=== PATIENT | male | born 1955 | race Caucasian/White ===

== ENCOUNTER → 2016-07-23 | Outpatient (CLI) | payer OTHER | LOC: GMAL 10:53 | PROVIDERS: ATTEND Family Medicine | DX: D51.3 Other dietary vitamin B12 deficiency anemia (principal); E29.8 Other testicular dysfunction; E55.9 Vitamin D deficiency, unspecified; Z79.899 Other long term (current) drug therapy ==

== ENCOUNTER → 2016-10-14 | Outpatient (CLI) | payer OTHER | LOC: SL 21:30 | PROVIDERS: ATTEND Psychiatry & Neurology Psychiatry | DX: G47.33 Obstructive sleep apnea (adult) (pediatric) (principal) ==

== ENCOUNTER 2016-12-20 05:45 | Day surgery (SDC) | payer OTHER ==
--- NOTE | 2016-12-16 08:58 | SSS ---
CHIEF COMPLAINT: Need for screening colonoscopy. HISTORY OF PRESENT ILLNESS: Mr. Beltran is a 61-year-old male who presented to my office for routine followup. He had a colonoscopy in 2011 by another physician. This physician recommended that he have a repeat colonoscopy in approximately two years because his bowel prep was poor and this made visualization difficult. In addition, he had a slightly tortuous colon with redundancy. Risks and benefits were discussed and he is agreeable to proceed. He has no recent history of changes in his bowel habits, though he does suffer from constipation somewhat chronically. He has had no blood in his stools. PAST MEDICAL HISTORY: 1. Diabetes mellitus diagnosed in 1988. He has been on insulin since 2005. 2. Hypothyroidism. 3. Seasonal allergies for which he is on immunotherapy. 4. Chronic depression. 5. Hyperlipidemia. 6. Hypertension. PAST SURGICAL HISTORY: 1. Vasectomy in 1988. 2. Colonoscopy as described above by Dr. Tristan on 12/24/11. 3. EGD that showed mild gastritis with no H. pylori or sprue. He did have a hiatal hernia and a widely patent Schatzki's ring, also by Dr. Tristan on 12/24/11. 4. Normal sinus rhythm in 11/25 that showed ejection fraction 60%, fixed hypoperfusion defect of the anterior left ventricle, suggestive of a prior myocardial infarction. 5. Echocardiogram on 11/05/14 that showed mild left ventricular hypertrophy, ejection fraction of 61%, diastolic dysfunction, diffuse thickening or sclerosis of the aortic valve cusps without reduced excursion. CURRENT MEDICATIONS: 1. Bystolic. 2. Crestor. 3. Janumet. 4. Lantus. 5. Levothyroxine. 6. Singulair. 7. Fluticasone. 8. Lamotrigine. 9. Methylphenidate. 10. Celexa. ALLERGIES: BACTRIM, WHICH MADE HIM FEEL LIKE HE COULD NO BREATHE, FARXIGA WHICH GIVES HIM A DRY MOUTH, AND PENICILLIN WHICH CAUSES RASH. FAMILY HISTORY: Father at 73 from pancreatic cancer. Mother at 78 from pneumonia and dementia. He has one adopted son. He has three siblings. SOCIAL HISTORY: He is a [place]. 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 He is . He has never smoked and he does not consume alcohol. PHYSICAL EXAMINATION: VITAL SIGNS: Temperature 98.3. Blood pressure 124/76. Pulse 89. Oxygen saturation 96% on room air. Weight 237 pounds. GENERAL: He is awake and alert, in no acute distress. HEENT: Unremarkable. NECK: Supple. LUNGS: Clear. CARDIOVASCULAR: Regular rate and rhythm with faint II/ systolic murmur. ABDOMEN: Soft and benign. RECTAL: Deferred until time of colonoscopy. NEUROLOGIC: Grossly nonfocal. ASSESSMENT: 1. Need for screening colonoscopy. PLAN: Colonoscopy on 12/20/16. #[id number] [facility]
[2016-12-20] MEDS ORDERED: LACTATED RINGERS 1,000 ML ONE (06:26)
[2016-12-20] MEDS ORDERED: LIDOCAINE 1% 10 ML VIAL INJ ONE (07:00)
[2016-12-20] MEDS ORDERED: PROPOFOL 200 MG/20 ML VIAL IV ONE (07:00)
[2016-12-20 08:37] VITALS: BP 112/70; TEMP 98.6; O2SAT 97
--- NOTE | 2016-12-20 09:05 | OP ---
DATE OF PROCEDURE: 12/20/16 PREOPERATIVE DIAGNOSIS: 1. Screening colonoscopy. POSTOPERATIVE DIAGNOSIS: 1. Tortuous and redundant colon. 2. Few left sided diverticula. 3. Adequate bowel prep. PROCEDURE: 1. Colonoscopy. SURGEON: Arjun Neal MD. ESTIMATED BLOOD LOSS: None. COMPLICATIONS: No immediate complications. ANESTHESIA: Propofol 420 mg administered intravenously by Willam Macias CRNA, using monitored anesthesia care. TECHNIQUE: After informed consent was obtained from the patient, the patient was taken to the Endoscopy Suite and placed in the left lateral decubitus position. Vital signs were monitored throughout the procedure. Supplemental oxygen was administered throughout the procedure. After adequate conscious sedation was obtained, digital rectal examination was performed, which showed a mildly enlarged prostate without nodules or bogginess. The colonoscope was then advanced into the patient's rectum and up through the sigmoid and descending colon with ease. Once the splenic flexure was reached, there was quite a bit of tortuosity and redundancy and this persisted all the way to the cecum. The terminal ileum was intubated and appeared normal. The colonoscope was then slowly withdrawn from the colon, taking great care to try to visualize all galan of the colon in 360 degree fashion. Throughout the entire colon, there were areas of liquid stool and great effort was made to try to suction out as much of this as possible. The prep was adequate, but certainly less than ideal. I do feel quite confident that no polyps greater than 1 cm were missed. In the upper sigmoid colon, there appeared to be perhaps 8 to 10 small diverticula noted. In the rectum, the colonoscope was retroflexed upon itself and no significant abnormalities were noted here either. The colonoscope was then unretroflexed and air was suctioned out of the patient's rectum. The colonoscope was removed from the patient. The patient tolerated the procedure well and was taken back to the recovery area in good condition. PLAN: Repeat scope in 8 years for screening purposes. We might consider GI doctor to perform at that time. He tolerated the procedure well. #[id number] [facility]
== END 2016-12-20 09:00 | disposition home or self-care (01) ==
LOC: AMB 05:45
PROVIDERS: ATTEND Family Medicine
DX: Z12.11 Encounter for screening for malignant neoplasm of colon (principal); K57.30 Diverticulosis of large intestine without perforation or abscess without bleeding; E11.9 Type 2 diabetes mellitus without complications; E03.9 Hypothyroidism, unspecified; F32.9 Major depressive disorder, single episode, unspecified; E78.5 Hyperlipidemia, unspecified; I10 Essential (primary) hypertension; Z88.0 Allergy status to penicillin; Z88.8 Allergy status to other drugs, medicaments and biological substances; Z79.4 Long term (current) use of insulin; Z79.899 Other long term (current) drug therapy
CPT/HCPCS: 00810; 36416; 45378; 82948; J3490; J7120

== ENCOUNTER → 2017-03-12 | Outpatient (CLI) | payer OTHER | LOC: SL 20:30 | PROVIDERS: ATTEND Psychiatry & Neurology Psychiatry | DX: G47.33 Obstructive sleep apnea (adult) (pediatric) (principal) ==